=== PATIENT | female | born 1985 | race African-American/Black ===

== ENCOUNTER 2016-04-18 23:53 | Emergency (ER) | payer OTHER ==
[~2016-04-18] VITALS: Ht 162.6 cm; Wt 78.5 kg
[~2016-04-18 23:53] MED LIST: UNOBMED
[2016-04-19 00:20] VITALS: BP 164/107
[2016-04-19] MEDS ORDERED: IBUPROFEN800 MG ORAL (00:30)
[2016-04-19] MEDS ORDERED: Ketorolac 60mg Inj IM ONE (00:30)
[2016-04-19] MEDS ORDERED: Oxycodone/Acetaminophen 5-325 ORAL ONE (00:30)
[2016-04-19] MEDS ORDERED: ACETAMINOPHEN-1 EAC1 ORAL (00:30)
--- NOTE | 2016-04-19 00:37 | Emergency Room Report ---
History of Present Illness General Chief Complaint: Chest Pain Source: Patient Present Illness HPI 30 YOF with no known CAD risk factors, non-smoker presents with left sided chest pain since 4pm. Pain is sharp, reproducible, started after "laughing a lot with family," assoc with sharp pains to left neck, left upper back. Worse with lying on left side. Thought it was related to her anxiety, got nervous about it, hyperventilated, then had numbness to bilateral hands as well. Triage BP is elevated here. States history of pre-eclampsia, took Lisinopril and Norvasc during but doesnt take anything currently. Allergies: Coded Allergies: AZITHROMYCIN (Verified Allergy, Unknown, 04/01/15) PINEAPPLE (Verified Allergy, Unknown, 04/02/15) Uncoded Allergies: PENICILLIN (Allergy, Unknown, 04/01/15) Patient History Past Medical History: none, psych hx Past Surgical History: none Pertinent Family History: none Social History: Denies: alcohol use, drug use, smoking Last Menstrual Period: Jan Now: No Immunizations: UTD Reviewed Nursing Documentation: PMH: Agreed, PSxH: Agreed Nursing Documentation-PMH Hx Hypertension: Yes Review of Systems All Other Systems: negative except mentioned in HPI Physical Exam Vital Signs Date Time Temp Pulse Resp B/P Pulse Ox O2 Delivery O2 Flow Rate FiO2 04/18/16 23:57 98.2 108 18 176/117 98 Room Air Sp02 EP Interpretation: reviewed, abnormal General Appearance: normal inspection, well appearing, no apparent distress, alert, GCS 15, non-toxic Head: normocephalic, atraumatic Eyes: bilateral eye EOMI, bilateral eye PERRL ENT: normal ENT inspection, hearing grossly normal, normal voice Neck: normal inspection, full range of motion, supple, no bony tend Respiratory: normal inspection, lungs clear, normal breath sounds, no rhonchi, no respiratory distress, no retraction, no accessory muscle use, no wheezing, speaking full sentences, other - Significant ttp to left upper chest, left shoulder, left neck and left upper back, chest symmetrical Cardiovascular #1: regular rate, rhythm, no edema Gastrointestinal: normal inspection, normal bowel sounds, non tender, soft, no guarding, no hernia Genitourinary: no CVA tenderness Musculoskeletal: normal inspection, back normal, normal range of motion, Nicola' s Sign negative Neurologic: normal inspection, alert, oriented x3, responsive, supervisor wet room III-XII nml as tested, motor strength/tone normal, speech normal Psychiatric: normal inspection Skin: normal inspection, normal color, no rash Lymphatic: normal inspection Medical Decision Making Diagnostic Impression: Primary Impression: Musculoskeletal chest pain ER Course Unlikely cardiac/ACS given duration, sharp quality, reproducibility, worsened with movement, and multiple areas of ttp to chest, neck, shoulder back No CAD risk factors Numbness bilateral hands likely due to hyperventilation ECG is NSR, no ischemia Elevated BP likely d/t pain IM and PO analgesia provided along with Rx Advised PMD followup to discuss need to restart BP med EKG Diagnostic Results Rate: normal Rhythm: NSR ST Segments: no acute changes ASA given to the pt in ED: No Rhythm Strip Diag. Results EP Interpretation: yes Rate: 75 Rhythm: NSR, no PVC's, no ectopy Last Vital Signs Date Time Temp Pulse Resp B/P Pulse Ox O2 Delivery O2 Flow Rate FiO2 04/19/16 00:21 102 18 Room Air 04/19/16 00:20 98.2 164/107 98 Status: improved Disposition: HOME, SELF-CARE Condition: Improved Scripts Ibuprofen* (MOTRIN*) 800 Mg Tablet 800 MG ORAL THREE TIMES A DAY for For Pain, #30 TAB 0 Refills Prov: KEE ALFREDO M.D. 04/19/16 Acetaminophen With Codeine (T#3) (TYLENOL #3 TAB*) Y Tab 1 TAB ORAL Q8H Y for For Pain for 7 Days, #30 TAB Prov: KEE ALFREDO M.D. 04/19/16 Patient Instructions: Nonspecific Chest Pain, Musculoskeletal Pain Additional Instructions: - Alternate Ibuprofen with Tylenol #3 for chest pain - Try applying heat or ice to see what works better - Follow up with your doctor to see if they recommend restarting blood pressure medication KEE ALFREDO M.D. Apr 19, 2016 00:37
[2016-04-19 00:43] VITALS: BP 160/98
[2016-04-19 00:45] VITALS: BP 160/98
--- NOTE | 2016-04-19 19:48 | Cardiology Report ---
APPROVED REPORT EKG Measurement Heart [id number] VA [id number] Normal sinus rhythm Normal ECG
== END 2016-04-19 00:46 | disposition home or self-care (01) ==
LOC: EMR 04-19 00:10
DX: R07.89 Other chest pain (principal); I10 Essential (primary) hypertension; Z88.1 Allergy status to other antibiotic agents; Z88.0 Allergy status to penicillin; Z91.018 Allergy to other foods
CPT/HCPCS: 93005; 96372; 99284

== ENCOUNTER 2016-08-02 23:18 | Emergency (ER) | payer OTHER ==
[~2016-08-02] VITALS: Ht 162.6 cm; Wt 83.0 kg
[~2016-08-02 23:18] MED LIST changes: +ACETAMINOPHEN-1 EAC1 ORAL; +IBUPROFEN800 MG ORAL
--- NOTE | 2016-08-02 23:43 | Emergency Room Report ---
History of Present Illness General Chief Complaint: Abdominal Pain Source: Patient Present Illness HPI Is a 30-year-old female with positive and past medical history. She presents with chief complaint of abdominal pain. She had mild pain about 2 days ago and went away. She has mild pain today and that went away also. About to have hours ago which are at work pain came on severe. 10 out of 10. It doubled her over. Pain is 10 out of 10. Start on the right side radiate to the left lower quadrant. Has nausea but no vomiting. No diarrhea. No radiation to the back. No associated with food. Allergies: Coded Allergies: AZITHROMYCIN (Verified Allergy, Unknown, 04/01/15) PINEAPPLE (Verified Allergy, Unknown, 04/02/15) Uncoded Allergies: PENICILLIN (Allergy, Unknown, 04/01/15) Patient History Past Medical History: see triage record, old chart reviewed Past Surgical History: other Pertinent Family History: none Social History: Denies: smoking Last Menstrual Period: July Now: No Immunizations: other Reviewed Nursing Documentation: PMH: Agreed, PSxH: Agreed Nursing Documentation-PMH Hx Hypertension: Yes Review of Systems Eye: Denies: blurred vision, eye pain ENT: Denies: ear pain, nose congestion, throat swelling Respiratory: Denies: cough, shortness of breath Cardiovascular: Denies: chest pain, palpitations Gastrointestinal: Reports: abdominal pain, nausea, Denies: diarrhea, vomiting Musculoskeletal: Denies: back pain, joint pain Skin: Denies: rash Neurological: Denies: headache, numbness Endocrine: Denies: increased thirst, increased urine Hematologic/Lymphatic: Denies: easy bruising All Other Systems: negative except mentioned in HPI Physical Exam Vital Signs Date Time Temp Pulse Resp B/P Pulse Ox O2 Delivery O2 Flow Rate FiO2 08/02/16 23:27 98.8 80 16 184/136 95 vitals with hypertension Sp02 EP Interpretation: reviewed, normal General Appearance: well appearing, alert, moderate distress - From pain Head: normocephalic, atraumatic Eyes: bilateral eye EOMI, bilateral eye PERRL ENT: hearing grossly normal, normal pharynx Neck: full range of motion, supple, no meningismus Respiratory: chest non-tender, lungs clear, normal breath sounds Cardiovascular #1: regular rate, rhythm, no murmur Gastrointestinal: normal bowel sounds, no mass, no organomegaly, no bruit, non- distended, tenderness - Pain and right upper quadrant and left lower quadrant Musculoskeletal: back normal, gait/station normal, normal range of motion Neurologic: alert, oriented x3 Psychiatric: mood/affect normal Skin: warm/dry Medical Decision Making Diagnostic Impression: Primary Impression: Abdominal pain Qualified Codes: R10.84 - Generalized abdominal pain ER Course Patient present with abdominal pain. Unknown etiology. No evidence of obstruction or acute abdomen. No evidence of gallstone. No evidence of pyelonephritis. She felt better now. We'll discharge home Lab Results Impression labs normal CT/MRI/US Diagnostic Results CT/MRI/US Diagnostic Results : Imaging Test Ordered: CT abdomen and pelvis Impression read by radiologist. Negative per radiologist. Fibroid uterus. Last Vital Signs Date Time Temp Pulse Resp B/P Pulse Ox O2 Delivery O2 Flow Rate FiO2 08/02/16 23:27 98.8 80 16 184/136 95 Status: improved Disposition: HOME, SELF-CARE Condition: Stable Scripts Ibuprofen* (MOTRIN*) 600 Mg Tablet 600 MG ORAL THREE TIMES A DAY, #30 TAB 0 Refills Prov: SHANNON WHALEN M.D. 08/03/16 Hydrocodone/Acetaminophen 5-325* (HYDROCODONE/ACETAMINOPHEN 5-325*) 1 Each Tablet 1 TAB ORAL Q6H Y for For Pain, #20 TAB 0 Refills Prov: SHANNON WHALEN M.D. 08/03/16 Patient Instructions: Abdominal Pain, Adult Additional Instructions: Followup with your DrAaliyah in 2-3 days. Return if worse. SHANNON WHALEN M.D. Aug 02, 2016 23:43
[2016-08-02] MEDS ORDERED: HYDROmorphone 1mg/ml Carpuject IVP ONE (23:45)
[2016-08-02 23:49] LABS: APPEARANCE,URINE CLEAR; KETONES,URINE NEGATIVE (NEGATIVE); LEUKOCYTE ESTERASE ,URINE 1+ (NEGATIVE); NITRITE,URINE NEGATIVE (NEGATIVE); PH,URINE 6.5 (4.5-8.0); PROTEIN,URINE NEGATIVE (NEGATIVE); UROBILINOGEN,URINE NORMAL MG/DL (0.0-1.0)
[2016-08-02 23:56] LABS: RBC,URINE 0-2 /HPF (0 - 2); SQUAMOUS EPITHELIAL CELL,UR FEW /LPF (NONE/OCC)
[2016-08-03 00:08] LABS: BASOPHILS % (AUTO) 1.2 % (0.0-2.0); EOSINOPHILS % (AUTO) 2.2 % (0.0-3.0); LYMPHOCYTES % (AUTO) 39.1 % (20.0-45.0); MEAN CORPUSCULAR HEMOGLOBIN 28.7 PG (27.0-31.0); MEAN CORPUSCULAR HGB CONC 32.8 G/DL (32.0-36.0); MEAN CORPUSCULAR VOLUME 87 FL (80-99); MEAN PLATELET VOLUME 10.9 FL (6.5-10.1); MONOCYTES % (AUTO) 5.1 % (1.0-10.0); NEUTROPHILS % (AUTO) 52.5 % (45.0-75.0); PLATELET COUNT 279 K/UL (150-450); RED BLOOD COUNT 5.29 M/UL (4.20-5.40); RED CELL DISTRIBUTION WIDTH 12.5 % (11.6-14.8); WHITE BLOOD COUNT 8.8 K/UL (4.8-10.8)
[2016-08-03 00:16] VITALS: BP 149/106
[2016-08-03 00:25] LABS: ALANINE AMINOTRANSFERASE 13 U/L (3-33); ALBUMIN/GLOBULIN RATIO 1.4 (1.0-2.7); ANION GAP 16 (5-15); ASPARTATE AMINO TRANSFERASE 33 U/L (5-40); CALCIUM 10.6 mg/dL (8.6-10.2); CARBON DIOXIDE 26 mEQ/L (20-30); CHLORIDE 97 mEQ/L (98-107); GLOMERULAR FILTRATION RATE > 60 mL/min (>60); HEMOLYSIS 295; LIPASE 44 U/L (< 60); POTASSIUM 5.7 mEQ/L (3.4-4.9); SODIUM 139 mEQ/L (135-145); TOTAL PROTEIN 8.3 g/dL (6.6-8.7)
[2016-08-03 00:29] LABS: INR 0.9 (0.9-1.1); PROTHROMBIN TIME 9.9 SEC (9.30-11.50)
[2016-08-03] MEDS ORDERED: HYDROmorphone 1mg/ml Carpuject IVP ONE (00:45)
[2016-08-03] MEDS ORDERED: IBUPROFEN600 MG ORAL (01:45)
[2016-08-03] MEDS ORDERED: HYDROCODON-ACE1 EA15 ORAL (01:45)
[2016-08-03 01:53] VITALS: BP 132/95
--- NOTE | 2016-08-03 09:13 | Diagnostic Imaging Report ---
Indications: Abdominal pain Technique: Continuous helical CT imaging of the abdomen and pelvis was performed with automatic exposure control following administration of nonionic IV contrast only, on a Siemens sensation [address] scanner. Axial, coronal, sagittal images were reconstructed at 5 mm slice thickness. No oral contrast was administered per requesting physician's order, despite no contraindications listed in either submitted clinical data or tech note.. CTDI volume(s): 19 mGy Total DLP: 10:15 mGy-cm Findings: Comparison: None Lack of oral contrast limits evaluation of gastrointestinal tract, nondilated throughout. Appendix unremarkable. No obvious mural thickening, adjacent stranding, extraluminal gas collections identified. Small amount free fluid in pelvic cul-de-sac and right adnexal region. 3 cm circumscribed low-attenuation mass with internal 1.5 cm higher attenuation nodule in right adnexal region. Uterine myometrium heterogeneous. Mass not excludable. Liver, gallbladder, pancreas, spleen, adrenal glands, kidneys, unopacified ureters and urinary bladder, left adnexal region, vascular structures, retroperitoneum, mesentery, remainder visualized abdominopelvic anatomy unremarkable. Lung bases and adjacent pleural surfaces clear. No focal skeletal abnormalities are identified. IMPRESSION: Right adnexal mass with adjacent free fluid most likely recently ruptured complex physiologic ovarian cyst. Ultrasound correlation suggested. These findings not described in [facility] preliminary report, minor discrepancy. No other evidence of acute abdominopelvic disease, with limitation as described. Subtle but potentially significant abnormalities the gastrointestinal tract may be missed. Repeat CT scan with full oral and IV contrast preparation recommended for more complete evaluation, as clinically indicated This otherwise correlates with [facility] preliminary report.
== END 2016-08-03 01:54 | disposition home or self-care (01) ==
LOC: EMR 23:43
DX: R10.11 Right upper quadrant pain (principal); R10.32 Left lower quadrant pain; I10 Essential (primary) hypertension; Z88.0 Allergy status to penicillin; Z91.018 Allergy to other foods; N94.89 Other specified conditions associated with female genital organs and menstrual cycle
CPT/HCPCS: 36415; 74177; 80053; 81003; 81025; 83690; 85025; 85610; 85730; 96374; 96375; 99284; J1170; J2405; Q9967

== ENCOUNTER 2016-12-12 22:24 | Emergency (ER) | payer OTHER ==
[~2016-12-12] VITALS: Ht 162.6 cm; Wt 93.4 kg
[~2016-12-12 22:24] MED LIST changes: +HYDROCODON-ACE1 EA15 ORAL; +IBUPROFEN600 MG ORAL
[2016-12-12] MEDS ORDERED: TRAZODONE HCL150 MG ORAL (22:33)
[2016-12-12] MEDS ORDERED: CYCLOBENZAPRINE10 MG ORAL (22:33)
[2016-12-12] MEDS ORDERED: AMLODIPINE BES2.5 MG ORAL (22:33)
[2016-12-12] MEDS ORDERED: BUSPIRONE HCL5 M1 ORAL (22:33)
[2016-12-12] MEDS ORDERED: LISINOPRIL2.5 MG ORAL (22:33)
--- NOTE | 2016-12-12 22:35 | Emergency Room Report ---
History of Present Illness General Chief Complaint: Chest Pain Source: Patient Present Illness HPI Is a 30-year-old female with history of blood pressure and depression. She presents with complaint of chest pain. Pain is epigastric area and trauma to her neck temporal area. Burning sensation. Onset since last night. Sharp in nature. 9/10. No nausea no vomiting. [place] that she has to burp. No diarrhea. No radiation. No exertional component. No diaphoresis. Allergies: Coded Allergies: AZITHROMYCIN (Verified Allergy, Unknown, 12/12/16) PINEAPPLE (Verified Allergy, Unknown, 12/12/16) Uncoded Allergies: PENICILLIN (Allergy, Unknown, 04/01/15) Patient History Past Medical History: see triage record, old chart reviewed, HTN, psych hx Past Surgical History: other Pertinent Family History: none Social History: Reports: smoking Last Menstrual Period: unk Now: No Immunizations: other Reviewed Nursing Documentation: PMH: Agreed, PSxH: Agreed Nursing Documentation-PMH Hx Hypertension: Yes Review of Systems Eye: Denies: eye pain, blurred vision ENT: Denies: ear pain, nose congestion, throat swelling Respiratory: Denies: cough, shortness of breath Cardiovascular: Reports: chest pain, Denies: palpitations Gastrointestinal: Denies: abdominal pain, diarrhea, nausea, vomiting Musculoskeletal: Denies: back pain, joint pain Skin: Denies: rash Neurological: Denies: headache, numbness Endocrine: Denies: increased thirst, increased urine Hematologic/Lymphatic: Denies: easy bruising All Other Systems: negative except mentioned in HPI Physical Exam Vital Signs Date Time Temp Pulse Resp B/P (MAP) Pulse Ox O2 Delivery O2 Flow Rate FiO2 12/12/16 22:27 98.8 94 16 98 Room Air vitals normal Sp02 EP Interpretation: reviewed, normal General Appearance: well appearing, no apparent distress, alert, obese Head: normocephalic, atraumatic Eyes: bilateral eye PERRL, bilateral eye EOMI ENT: hearing grossly normal, normal pharynx Neck: full range of motion, supple, no meningismus Respiratory: chest non-tender, lungs clear, normal breath sounds Cardiovascular #1: regular rate, rhythm, no murmur Gastrointestinal: normal bowel sounds, non tender, no mass, no organomegaly, no bruit, non-distended Musculoskeletal: back normal, gait/station normal, normal range of motion Neurologic: alert, oriented x3 Psychiatric: mood/affect normal Skin: warm/dry Medical Decision Making Diagnostic Impression: Primary Impression: Chest pain Qualified Codes: R07.9 - Chest pain, unspecified Additional Impression: Cocaine abuse ER Course This patient presents with atypical chest pain that has been ongoing for over 24 hours. EKG is normal. Troponin negative. Unlikely to be ACS. She does have cocaine in his system. Most likely reflux problem. No evidence of ACS, PE , dissection to name a few. We'll discharge home. Lab Results Impression labs normal EKG Diagnostic Results Rate: normal Rhythm: NSR ST Segments: no acute changes ASA given to the pt in ED: Yes Rhythm Strip Diag. Results Rhythm Strip Time: 22:37 EP Interpretation: yes Rate: 90 Rhythm: NSR, no PVC's, no ectopy Chest X-Ray Diagnostic Results Chest X-Ray Diagnostic Results : Chest X-Ray Ordered: Yes # of Views/Limited/Complete: 1 View Indication: Chest Pain EP Interpretation: Yes Interpretation: no consolidation, no effusion, no pneumothorax, no acute cardiopulmonary disease Impression: No acute disease Electronically Signed by: Electronically signed by Maverick Wick MD Last Vital Signs Date Time Temp Pulse Resp B/P (MAP) Pulse Ox O2 Delivery O2 Flow Rate FiO2 12/12/16 22:27 98.8 94 16 98 Room Air Status: improved Disposition: HOME, SELF-CARE Condition: Stable Scripts Omeprazole Magnesium (PRILOSEC OTC) 20 Mg Tablet. 20 MG ORAL DAILY, #30 TAB Prov: MAVERICK WICK M.D. 12/12/16 Patient Instructions: Nonspecific Chest Pain Additional Instructions: Abstain from drugs. Followup with your in 2-3 days. Return it worse. MAVERICK WICK M.D. Dec 12, 2016 22:35
[2016-12-12] MEDS ORDERED: Mylanta II UD 30ml ORAL ONE (22:45)
[2016-12-12] MEDS ORDERED: Aspirin Baby 81mg ORAL ONE (22:45)
[2016-12-12 22:46] VITALS: BP 137/99
[2016-12-12 22:55] LABS: BASOPHILS % (AUTO) 1.4 % (0.0-2.0); EOSINOPHILS % (AUTO) 4.1 % (0.0-3.0); HEMATOCRIT 44.9 % (37.0-47.0); HEMOGLOBIN 14.4 G/DL (12.0-16.0); LYMPHOCYTES % (AUTO) 34.6 % (20.0-45.0); MEAN CORPUSCULAR VOLUME 89 FL (80-99); MONOCYTES % (AUTO) 5.9 % (1.0-10.0); NEUTROPHILS % (AUTO) 53.9 % (45.0-75.0); PLATELET COUNT 219 K/UL (150-450); RED BLOOD COUNT 5.04 M/UL (4.20-5.40); WHITE BLOOD COUNT 8.3 K/UL (4.8-10.8)
[2016-12-12 22:59] LABS: APPEARANCE,URINE CLEAR; BILIRUBIN, URINE NEGATIVE (NEGATIVE); COLOR,URINE PALE YELLOW; GLUCOSE, URINE (UA) NEGATIVE (NEGATIVE); KETONES,URINE NEGATIVE (NEGATIVE); LEUKOCYTE ESTERASE ,URINE 1+ (NEGATIVE); NITRITE,URINE NEGATIVE (NEGATIVE); PH,URINE 7 (4.5-8.0); PROTEIN,URINE NEGATIVE (NEGATIVE); UROBILINOGEN,URINE NORMAL MG/DL (0.0-1.0)
[2016-12-12] MEDS ORDERED: Norco 5mg/325mg tab ORAL ONE (23:30)
[2016-12-12] MEDS ORDERED: PRILOSEC OTC20 MG ORAL (23:31)
[2016-12-12 23:41] VITALS: BP 127/87
[2016-12-12 23:42] VITALS: BP 137/99
[2016-12-12 23:49] LABS: ALANINE AMINOTRANSFERASE 19 U/L (12-78); ALBUMIN 4.4 G/DL (3.4-5.0); ALBUMIN/GLOBULIN RATIO 1.1 (1.0-2.7); ALKALINE PHOSPHATASE 99 U/L (46-116); ANION GAP 8 mmol/L (5-15); ASPARTATE AMINO TRANSFERASE 14 U/L (15-37); BILIRUBIN,TOTAL 0.2 MG/DL (0.2-1.0); BLOOD UREA NITROGEN 18 mg/dL (7-18); CALCIUM 9.4 MG/DL (8.5-10.1); CARBON DIOXIDE 27 MMOL/L (21-32); CHLORIDE 100 MMOL/L (98-107); POTASSIUM 3.9 MMOL/L (3.5-5.1); SODIUM 135 MMOL/L (136-145)
[2016-12-12 23:59] LABS: CKMB 1.3 NG/ML (0.0-3.6); CREATINE KINASE 96 U/L (26-308)
--- NOTE | 2016-12-13 12:01 | Diagnostic Imaging Report ---
Indication: Chest pain Comparison: None A single view chest radiograph was obtained. Findings: Cardiomediastinal appearance is within normal limits for age. Pulmonary vascularity is appropriate. The diaphragmatic contour is smooth and costophrenic angles are sharp. No pleural effusions are identified. The bones are unremarkable. Impression: No acute findings
--- NOTE | 2016-12-13 20:17 | Cardiology Report ---
APPROVED REPORT EKG Measurement Heart [id number] [place] [id number] [id number] Normal sinus rhythm Normal ECG
--- NOTE | 2016-12-13 20:17 | Cardiology Report ---
APPROVED REPORT EKG Measurement Heart [id number] [place] 144P70 [id number] Normal sinus rhythm Normal ECG
--- NOTE | 2016-12-13 20:17 | Cardiology Report ---
APPROVED REPORT EKG Measurement Heart [id number] MD 144P70 [id number] Normal sinus rhythm Normal ECG
== END 2016-12-12 23:42 | disposition home or self-care (01) ==
LOC: EMR 22:36
DX: R07.9 Chest pain, unspecified (principal); F14.10 Cocaine abuse, uncomplicated; I10 Essential (primary) hypertension; F17.210 Nicotine dependence, cigarettes, uncomplicated; Z88.0 Allergy status to penicillin; Z88.1 Allergy status to other antibiotic agents; Z91.018 Allergy to other foods; F32.9 Major depressive disorder, single episode, unspecified
CPT/HCPCS: 36415; 71010; 80053; 80307; 81003; 81025; 82550; 82553; 84484; 85025; 93005; 99284

== ENCOUNTER 2017-05-15 09:54 | Emergency (ER) | payer OTHER ==
[~2017-05-15] VITALS: Ht 162.6 cm; Wt 90.7 kg
[~2017-05-15 09:54] MED LIST changes: +AMLODIPINE BES2.5 MG ORAL; +BUSPIRONE HCL5 M1 ORAL; +CYCLOBENZAPRINE10 MG ORAL; +LISINOPRIL2.5 MG ORAL; +PRILOSEC OTC20 MG ORAL; +TRAZODONE HCL150 MG ORAL
--- NOTE | 2017-05-15 11:26 | Diagnostic Imaging Report ---
Indication: Pain Comparison: None Findings: 3 views of the right foot were obtained. No acute fractures, malalignment, erosions or periostitis are identified. Soft tissues are unremarkable. Impression: No acute findings.
--- NOTE | 2017-05-15 11:26 | Diagnostic Imaging Report ---
Indication: Pain right ankle ankle pain/trauma Comparison: None Findings: 3 views of the right ankle obtained. No acute fracture, malalignment, periostitis, or osteochondral defects are identified. Soft tissues are unremarkable. Impression: Negative examination
[2017-05-15] MEDS ORDERED: ACETAMINOPHEN-1 EAC1 ORAL (11:28)
[2017-05-15] MEDS ORDERED: Norco 5mg/325mg tab ORAL ONE (11:30)
[2017-05-15 11:40] VITALS: BP 120/80
--- NOTE | 2017-05-15 12:21 | Emergency Room Report ---
History of Present Illness General Chief Complaint: Lower Extremity Injury Source: Patient Present Illness HPI 31-year-old female with pain to outer right ankle after accidental twist of ankle after missing 2 steps earlier today. No previous trauma to ankle or foot. Patient states she heard a pop. Has pain with ambulation to lateral ankle. Took pain medication at home and some improvement. Allergies: Coded Allergies: AZITHROMYCIN (Verified Allergy, Unknown, 12/12/16) PINEAPPLE (Verified Allergy, Unknown, 12/12/16) Uncoded Allergies: PENICILLIN (Allergy, Unknown, 04/01/15) Patient History Past Medical History: none Past Surgical History: none Pertinent Family History: none Social History: Denies: smoking, alcohol use, drug use Last Menstrual Period: april Now: No Immunizations: UTD Reviewed Nursing Documentation: PMH: Agreed; PSxH: Agreed Nursing Documentation-PMH Hx Hypertension: Yes Review of Systems All Other Systems: negative except mentioned in HPI Physical Exam Vital Signs Date Time Temp Pulse Resp B/P (MAP) Pulse Ox O2 Delivery O2 Flow Rate FiO2 05/15/17 09:56 97.9 88 16 158/105 99 Room Air 97.9 Sp02 EP Interpretation: reviewed, normal General Appearance: normal inspection, well appearing, no apparent distress, alert, GCS 15, non-toxic Head: normocephalic, atraumatic Eyes: bilateral eye PERRL, bilateral eye EOMI ENT: normal ENT inspection, hearing grossly normal, normal pharynx, no angioedema, normal voice, TMs + canals normal, uvula midline, moist mucus membranes Neck: normal inspection, full range of motion, supple, thyroid normal, no meningismus, no bony tend Respiratory: normal inspection, lungs clear, normal breath sounds, no rhonchi, no respiratory distress, no retraction, no accessory muscle use, no wheezing, speaking full sentences Cardiovascular #1: regular rate, rhythm, no edema, no JVD, normal capillary refill Gastrointestinal: normal inspection, normal bowel sounds, non tender, soft, no mass, no peritonitis, non-distended, no guarding, no hernia, no pulsatile mass Genitourinary: no CVA tenderness Musculoskeletal: normal inspection, back normal, normal range of motion, no calf tenderness, pelvis stable, Nicola's Sign negative, other - Right ankle: TTP with mild swelling to anterior lateral ankle. ROM intact. 2+ dorsalis pedis pulse. No ttp to right leg, knee. Neurologic: normal inspection, alert, oriented x3, responsive, pipe coverer helper III-XII nml as tested, motor strength/tone normal, cerebellar normal, normal gait, speech normal Psychiatric: normal inspection, judgement/insight normal, mood/affect normal, no suicidal/homicidal ideation, no delusions Skin: normal inspection, normal color, no rash Lymphatic: normal inspection, no adenopathy Medical Decision Making Diagnostic Impression: Primary Impression: Ankle sprain Qualified Codes: S93.401A - Sprain of unspecified ligament of right ankle, initial encounter ER Course Vital signs stable, afebrile Only mild swelling on exam No obvious deformity or open wound. X-rays of ankle and foot unremarkable per official radiology review Patient placed in [facility] [facility] provided [facility] home with PMD referral for orthopedics as needed Advised nonweightbearing until pain resolved ER course: Patient has remained stable during ED stay. Disposition: Patient is to be discharged to home. Prescriptions given are T#3 Patient is instructed to follow up with their primary care doctor within 5 days. Strict return precautions discussed with patient such as fever, chills, worsening/severe pain, nausea, vomiting, which may indicate severe illness. Patient verbalizes understanding and agrees with plan. Please note that this Emergency Department Report was dictated using [employer] redemption clerk technology software, occasionally this can lead to erroneous entry secondary to interpretation by the dictation equipment Last Vital Signs Date Time Temp Pulse Resp B/P (MAP) Pulse Ox O2 Delivery O2 Flow Rate FiO2 05/15/17 11:40 98.0 78 18 120/80 98 Room Air Status: improved Disposition: HOME, SELF-CARE Condition: Improved Scripts Acetaminophen With Codeine (T#3) (TYLENOL #3 TAB*) Y Tab 1 TAB ORAL Q8H PRN for For Pain for 7 Days, #20 TAB Prov: KEE ALFREDO M.D. 05/15/17 Patient Instructions: Ankle Sprain KEE ALFREDO M.D. May 15, 2017 12:21
== END 2017-05-15 11:42 | disposition home or self-care (01) ==
LOC: EMR 10:12
DX: S93.401A Sprain of unspecified ligament of right ankle, initial encounter (principal); X50.1XXA Overexertion from prolonged static or awkward postures, initial encounter; Y92.9 Unspecified place or not applicable; Z88.0 Allergy status to penicillin; Z91.018 Allergy to other foods
CPT/HCPCS: 99284